=== PATIENT | female | born 1985 | race African-American/Black ===

== ENCOUNTER 2017-11-26 15:45 | Emergency (ER) | payer MEDICAID ==
[~2017-11-26] VITALS: Ht 167.6 cm; Wt 163.3 kg
[2017-11-26 16:36] VITALS: BP 140/75
[2017-11-26 16:49] LABS: BASOPHILS % (AUTO) 1.2 % (0.0-2.0); LYMPHOCYTES % (AUTO) 38.9 % (20.0-45.0); MEAN CORPUSCULAR VOLUME 81 FL (80-99); MONOCYTES % (AUTO) 8.3 % (1.0-10.0); NEUTROPHILS % (AUTO) 45.7 % (45.0-75.0); PLATELET COUNT 352 K/UL (150-450); RED BLOOD COUNT 3.46 M/UL (4.20-5.40); RED CELL DISTRIBUTION WIDTH 13.6 % (11.6-14.8); WHITE BLOOD COUNT 4.8 K/UL (4.8-10.8)
[2017-11-26 16:56] LABS: APPEARANCE,URINE VERY CLOUDY; BILIRUBIN, URINE NEGATIVE (NEGATIVE); GLUCOSE, URINE (UA) NEGATIVE (NEGATIVE); KETONES,URINE 1+ (NEGATIVE); LEUKOCYTE ESTERASE ,URINE 2+ (NEGATIVE); NITRITE,URINE NEGATIVE (NEGATIVE); PH,URINE 8 (4.5-8.0); PROTEIN,URINE 3+ (NEGATIVE); UROBILINOGEN,URINE NORMAL MG/DL (0.0-1.0)
[2017-11-26 17:03] LABS: COLOR,URINE RED
[2017-11-26 17:07] LABS: ANION GAP 8 mmol/L (5-15); BLOOD UREA NITROGEN 10 mg/dL (7-18); CALCIUM 9.1 MG/DL (8.5-10.1); CARBON DIOXIDE 29 MMOL/L (21-32); CHLORIDE 101 MMOL/L (98-107); CREATININE 0.8 MG/DL (0.55-1.30); SODIUM 138 MMOL/L (136-145)
[2017-11-26 17:13] LABS: ALANINE AMINOTRANSFERASE 20 U/L (12-78); ALBUMIN 3.3 G/DL (3.4-5.0); ALBUMIN/GLOBULIN RATIO 0.8 (1.0-2.7); ALKALINE PHOSPHATASE 72 U/L (46-116); ASPARTATE AMINO TRANSFERASE 18 U/L (15-37); BILIRUBIN,TOTAL 0.2 MG/DL (0.2-1.0)
[2017-11-26 17:24] VITALS: BP 147/68
[2017-11-26 18:52] VITALS: BP 142/64
[2017-11-26 21:30] VITALS: BP 146/69
[2017-11-26] MEDS ORDERED: Acetaminophen 500mg (ES) tab ORAL ONE ×2 (21:48→22:00)
--- NOTE | 2017-11-26 21:58 | Emergency Room Report ---
History of Present Illness General Chief Complaint: General Complaint Source: Patient Present Illness HPI This patient states that for the past month that she has had heavy vaginal bleeding. She states that she had a positive home test in August of last year. She states that she did have some spotting and bleeding and been did see an OB physician. She was told that she was anemic last month. She states that she had a family emergency and had to leave the area and was unable to followup. She states that she has had heavy bleeding like a very heavy menstrual periods daily. She's only had a couple of light days. She denies chest pain or shortness of breath. She occasionally gets some cramping pain but denies pain at this time. She denies fever or chills. She denies nausea or vomiting. She has no other complaints. Allergies: Coded Allergies: No Known Allergies (Unverified , 11/26/17) Patient History Past Medical History: see triage record, HTN Social History: Reports: smoking, alcohol use, drug use - THC Last Menstrual Period: Unknown Now: No : 4 Para: 3 Reviewed Nursing Documentation: PMH: Agreed, PSxH: Agreed Nursing Documentation-PMH Past Medical History: No History, Except For Hx Hypertension: Yes Review of Systems All Other Systems: negative except mentioned in HPI Physical Exam Vital Signs Date Time Temp Pulse Resp B/P (MAP) Pulse Ox O2 Delivery O2 Flow Rate FiO2 11/26/17 15:55 97.9 91 18 181/108 100 11/26/17 16:36 Room Air Sp02 EP Interpretation: reviewed, normal General Appearance: no apparent distress, alert, GCS 15, non-toxic, obese Head: normocephalic, atraumatic Eyes: bilateral eye normal inspection, bilateral eye PERRL ENT: hearing grossly normal, normal pharynx, no angioedema, normal voice Neck: full range of motion, supple/symm/no masses Respiratory: chest non-tender, lungs clear, normal breath sounds, speaking full sentences Cardiovascular #1: regular rate, rhythm, no edema Gastrointestinal: normal bowel sounds, non tender, soft, non-distended, no guarding, no rebound Rectal: deferred Genitourinary: other - +blood clots Musculoskeletal: back normal, gait/station normal, normal range of motion, non- tender Neurologic: alert, oriented x3, responsive, motor strength/tone normal, sensory intact, speech normal Psychiatric: judgement/insight normal, memory normal, mood/affect normal, no suicidal/homicidal ideation Skin: normal color, no rash, warm/dry, well hydrated Medical Decision Making Diagnostic Impression: Primary Impression: Menorrhagia ER Course This patient presents with menorrhagia. She underwent pelvic ultrasound and there was a thickened endometrium but there are no retained products of conception or other abnormalities. Patient's hCG was negative. The patient has a mild anemia. I will place the patient on control pills and start her on iron supplements. The patient does not meet criteria for blood transfusion. Patient is instructed to followup with her OB for further evaluation for her thickened endometrium. No emergency medical condition was identified. She is given close return precautions and followup instructions. Laboratory Tests Test 11/26/17 16:20 White Blood Count 4.8 K/UL (4.8-10.8) Red Blood Count 3.46 M/UL (4.20-5.40) L Hemoglobin 9.0 G/DL (12.0-16.0) L Hematocrit 28.0 % (37.0-47.0) L Mean Corpuscular Volume 81 FL (80-99) Mean Corpuscular Hemoglobin 26.0 PG (27.0-31.0) L Mean Corpuscular Hemoglobin Concent 32.1 G/DL (32.0-36.0) Red Cell Distribution Width 13.6 % (11.6-14.8) Platelet Count 352 K/UL (150-450) Mean Platelet Volume 8.0 FL (6.5-10.1) Neutrophils (%) (Auto) 45.7 % (45.0-75.0) Lymphocytes (%) (Auto) 38.9 % (20.0-45.0) Monocytes (%) (Auto) 8.3 % (1.0-10.0) Eosinophils (%) (Auto) 6.0 % (0.0-3.0) H Basophils (%) (Auto) 1.2 % (0.0-2.0) Prothrombin Time 10.0 SEC (9.30-11.50) Prothrombin Time INR 1.0 (0.9-1.1) PTT 28 SEC (23-33) Urine Color Red Urine Appearance Very cloudy Urine pH 8 (4.5-8.0) Urine Specific [place] 1.015 (1.005-1.035) Urine Protein 3+ (NEGATIVE) H Urine Glucose (UA) Negative (NEGATIVE) Urine Ketones 1+ (NEGATIVE) H Urine Occult Blood 5+ (NEGATIVE) H Urine Nitrite Negative (NEGATIVE) Urine Bilirubin Negative (NEGATIVE) Urine Urobilinogen Normal MG/DL (0.0-1.0) Urine Leukocyte Esterase 2+ (NEGATIVE) H Urine RBC Tntc /HPF (0 - 2) H Urine WBC 0-2 /HPF (0 - 2) Urine Squamous Epithelial Cells Few /LPF (NONE/OCC) Urine Bacteria Few /HPF (NONE) Urine HCG, Qualitative Negative Sodium Level 138 MMOL/L (136-145) Potassium Level 4.0 MMOL/L (3.5-5.1) Chloride Level 101 MMOL/L (98-107) Carbon Dioxide Level 29 MMOL/L (21-32) Anion Gap 8 mmol/L (5-15) Blood Urea Nitrogen 10 mg/dL (7-18) Creatinine 0.8 MG/DL (0.55-1.30) Estimate Glomerular Filtration Rate > 60 mL/min (>60) Glucose Level 89 MG/DL (74-106) Calcium Level 9.1 MG/DL (8.5-10.1) Total Bilirubin 0.2 MG/DL (0.2-1.0) Aspartate Amino Transferase (AST) 18 U/L (15-37) Alanine Aminotransferase (ALT) 20 U/L (12-78) Alkaline Phosphatase 72 U/L (46-116) Total Protein 7.2 G/DL (6.4-8.2) Albumin 3.3 G/DL (3.4-5.0) L Globulin 3.9 g/dL Albumin/Globulin Ratio 0.8 (1.0-2.7) L Human Chorionic Gonadotropin, Quant < 1 mIU/mL (1-6) L EKG Diagnostic Results Rate: normal Rhythm: NSR ST Segments: no acute changes Rhythm Strip Diag. Results EP Interpretation: yes Rate: 90s Rhythm: NSR, no PVC's, no ectopy CT/MRI/US Diagnostic Results CT/MRI/US Diagnostic Results : Imaging Test Ordered: US Pelvis Impression Thickened endometrium measuring 1 cm. Nabothian cysts. Otherwise unremarkable. Last Vital Signs Date Time Temp Pulse Resp B/P (MAP) Pulse Ox O2 Delivery O2 Flow Rate FiO2 2/1/18 18:52 98.4 82 18 142/64 100 Room Air Disposition: HOME, SELF-CARE Condition: Stable Referrals: [facility] (PCP) LIZZIE LOPES D.O. Nov 26, 2017 21:58
[2017-11-26] MEDS ORDERED: FERROUS SULFAT325 MG ORAL (22:01)
[2017-11-26] MEDS ORDERED: ORTHO TRI-CYCL1 EACH PO (22:01)
[2017-11-26] MEDS ORDERED: HYDROCHLOROTHIA25 MG ORAL (22:01)
[2017-11-26 22:14] VITALS: BP 142/64
--- NOTE | 2017-11-27 14:17 | Diagnostic Imaging Report ---
Indication:Lower abdominal and pelvic pain Technique: Grayscale and duplex Doppler imaging of the pelvis performed utilizing a transabdominal scan and endovaginal scan. Comparison: None Findings: Several fairly large cystic structures are demonstrated within the uterus centrally. These measure in the upwards of 1.5 cm with some containing a fluid level. The nature of these cystic structures is not known but when should consider adenomyosis. Evaluation with MR may be of benefit. Endometrium is about 10 mm. Uterus measures 6.6 x 3.9 x 3.3 cm. The right ovary isn't seen. The left ovary showed dopplerable blood flow and is normal in appearance measuring 2.9 x 3.3 x 2.2 cm. IMPRESSION: Multiple cysts within the central aspect of the uterus of undetermined etiology. When should consider adenomyosis. Differential may include multiple polyps. Right ovary not visualized.
--- NOTE | 2017-11-29 16:54 | Cardiology Report ---
APPROVED REPORT EKG Measurement Heart [id number] Normal sinus rhythm Cannot rule out Anterior infarct, age undetermined Abnormal ECG
== END 2017-11-26 22:14 | disposition home or self-care (01) ==
LOC: EMR 17:30
DX: N92.0 Excessive and frequent menstruation with regular cycle (principal); I10 Essential (primary) hypertension; N85.8 Other specified noninflammatory disorders of uterus
CPT/HCPCS: 36415; 76856; 80053; 81003; 81025; 84702; 85025; 85610; 85730; 86850; 86900; 86901; 93005; 96360; 99284